=== PATIENT | female | born 1995 | race Caucasian/White ===

== ENCOUNTER 2020-08-18 17:20 | Emergency (ER) | payer MEDICAID, SELFPAY ==
[~2020-08-18] VITALS: Ht 162.6 cm; Wt 93.9 kg
[2020-08-18] MEDS ORDERED: IBUPROFEN 800 MG TAB PO ONE (18:00)
--- NOTE | 2020-08-18 19:15 | REP ---
INDICATION: L ankle pain COMPARISON: None. TECHNIQUE: Four views left ankle. FINDINGS: There is no evidence of acute fracture, dislocation, or intrinsic bone disease. IMPRESSION: No fracture or dislocation. <Electronically signed by Andrey Chahal > 08/18/20 [id number]
--- NOTE | 2020-08-18 19:16 | REP ---
INDICATION: L knee pain COMPARISON: None. TECHNIQUE: Five views left knee. FINDINGS: There is no evidence of acute fracture, dislocation, or intrinsic bone disease. IMPRESSION: No fracture or dislocation. <Electronically signed by Andrey Chahal > 08/18/20 [id number]
[2020-08-18 19:50] VITALS: BP 139/84
== END 2020-08-18 19:55 | disposition home or self-care (01) ==
LOC: M ED 17:20
DX: S83.92XA Sprain of unspecified site of left knee, initial encounter (principal); S93.402A Sprain of unspecified ligament of left ankle, initial encounter; W01.0XXA Fall on same level from slipping, tripping and stumbling without subsequent striking against object, initial encounter; Y92.9 Unspecified place or not applicable; Y93.9 Activity, unspecified; Y99.0 Civilian activity done for income or pay

== ENCOUNTER 2021-02-09 08:14 | Emergency (ER) | payer MEDICAID, SELFPAY ==
[~2021-02-09] VITALS: Ht 162.6 cm; Wt 86.8 kg
[2021-02-09] MEDS ORDERED: KETOROLAC 30 MG/ML 1ML VIAL IV ONE (09:35)
[2021-02-09] MEDS ORDERED: diphenhydrAMINE 50MG/ML VIAL (J1200) IV STA (09:38)
[2021-02-09] MEDS ORDERED: ONDANSETRON 4MG/2ML VIAL IV ONE (09:40)
[2021-02-09 10:57] LABS: BASO % 0.4 % (0.0-1.0); EOS % 0.3 % (0.0-3.0); HEMATOCRIT 38.7 % (36.0-47.0); HEMOGLOBIN 12.7 g/dl (12.0-15.5); LYMPH # 1.8 10^3/uL (1.5-5.0); LYMPH % 26.3 % (24.0-44.0); MEAN CORPUSCULAR HEMOGLOBIN 29.5 pg (27.0-33.0); MEAN CORPUSCULAR HGB CONC 32.8 g/dl (32.0-36.5); MEAN CORPUSCULAR VOLUME 89.8 fl (80.0-96.0); MONO # 0.4 10^3/uL (0.0-0.8); MONO % 5.9 % (2.0-8.0); NEUTROPHILS # 4.5 10^3/uL (1.5-8.5); PLATELET COUNT, AUTOMATED 351 10^3/uL (150-450); RED BLOOD COUNT 4.31 10^6/uL (4.00-5.40); WHITE BLOOD COUNT 6.7 10^3/uL (4.0-10.0)
[2021-02-09 11:11] LABS: BILIRUBIN,DIRECT 0.2 MG/DL (0.0-0.2); BILIRUBIN,TOTAL 0.7 MG/DL (0.2-1.0); TOTAL PROTEIN 7.3 GM/DL (6.4-8.2)
[2021-02-09] MEDS ORDERED: ACETAMINOPHEN 325 MG TAB PO ONE (13:25)
[2021-02-09] MEDS ORDERED: KETO10TAB PO (14:17)
[2021-02-09 14:23] VITALS: BP 120/73
[2021-02-09] MEDS ORDERED: POTA10CA32 PO (14:33)
== END 2021-02-09 15:21 | disposition home or self-care (01) ==
LOC: M ED 08:14
DX: G43.909 Migraine, unspecified, not intractable, without status migrainosus (principal); R74.8 Abnormal levels of other serum enzymes; E87.6 Hypokalemia; F17.200 Nicotine dependence, unspecified, uncomplicated
CPT/HCPCS: 36415; 80047; 80076; 81001; 83690; 84702; 85025; 87088; 87186; 96374; 96375; 99284; J1200; J1885; J2405

== ENCOUNTER → 2023-12-24 | Outpatient (REF) | payer OTHER, MEDICAID ==
[~2023-12-24] MED LIST: KETO10TAB PO; POTA10CA70 PO
[2023-12-24 18:02] LABS: BASO % 0.5 % (0.0-1.0); EOS % 0.5 % (0.0-3.0); HEMATOCRIT 43.7 % (36.0-47.0); HEMOGLOBIN 14.6 g/dl (12.0-15.5); LYMPH % 38.9 % (24.0-44.0); MEAN CORPUSCULAR HEMOGLOBIN 30.1 pg (27.0-33.0); MEAN CORPUSCULAR HGB CONC 33.4 g/dl (32.0-36.5); MEAN CORPUSCULAR VOLUME 90.1 fl (80.0-96.0); MONO # 0.5 10^3/uL (0.0-0.8); MONO % 6.4 % (2.0-8.0); NEUTROPHILS # 4.1 10^3/uL (1.5-8.5); NEUTROPHILS % 53.6 % (36.0-66.0); PLATELET COUNT, AUTOMATED 281 10^3/uL (150-450); RED BLOOD COUNT 4.85 10^6/uL (4.00-5.40); WHITE BLOOD COUNT 7.7 10^3/uL (4.0-10.0)
[2023-12-24 18:33] LABS: ALBUMIN 3.8 G/DL (3.2-5.2); ALKALINE PHOSPHATASE 80 U/L (46-116); ALT/SGPT 21 U/L (7.0-40); AST/SGOT 11 U/L (<34); BILIRUBIN,TOTAL 0.3 MG/DL (0.3-1.2); BLOOD UREA NITROGEN 15 MG/DL (9-23); CARBON DIOXIDE LEVEL 26 MMOL/L (20-31); CHLORIDE LEVEL 109 MMOL/L (98-107); CHOLESTEROL LEVEL 151 MG/DL (<200); CHOLESTEROL RISK RATIO 2.87 (<5); CREATININE FOR GFR 0.69 MG/DL (0.55-1.30); GLOMERULAR FILTRATION RATE > 60.0 (>60); GLUCOSE, FASTING 94 MG/DL (60-100); HDL CHOLESTEROL 52.6 MG/DL (>40); NON-HDL-C 98.4 MG/DL; POTASSIUM SERUM 3.7 MMOL/L (3.5-5.1); SODIUM LEVEL 142 MMOL/L (136-145); TOTAL PROTEIN 6.8 G/DL (5.7-8.2); TRIGLYCERIDES LEVEL 112 MG/DL (<150)
[2023-12-24 18:35] LABS: THYROID STIMULATING HORMONE 1.779 uIU/ML (0.55-4.78)
== END ==
LOC: M LAB REF 17:17
PROVIDERS: ATTEND Nurse Practitioner Family
DX: E66.3 Overweight (principal); E55.9 Vitamin D deficiency, unspecified; R53.83 Other fatigue

== ENCOUNTER 2024-10-03 10:14 | Emergency (ER) | payer OTHER ==
[~2024-10-03] VITALS: Ht 162.6 cm; Wt 98.0 kg
[2024-10-03 10:26] VITALS: BP 116/68; TEMP 97.4; O2SAT 100
== END 2024-10-03 11:29 | disposition left against medical advice (07) ==
LOC: M ED 10:14
DX: Z53.21 Procedure and treatment not carried out due to patient leaving prior to being seen by health care provider (principal)

== ENCOUNTER 2024-10-04 07:15 | Emergency (ER) | payer OTHER ==
[2024-10-04 08:07] LABS: BASO % 0.1 % (0.0-1.0); HEMATOCRIT 50.3 % (36.0-47.0); HEMOGLOBIN 16.2 g/dl (12.0-15.5); LYMPH # 0.5 10^3/uL (1.5-5.0); LYMPH % 2.4 % (24.0-44.0); MEAN CORPUSCULAR HGB CONC 32.2 g/dl (32.0-36.5); MEAN CORPUSCULAR VOLUME 93.1 fl (80.0-96.0); MONO # 1.6 10^3/uL (0.0-0.8); MONO % 7.6 % (2.0-8.0); NEUTROPHILS # 18.6 10^3/uL (1.5-8.5); NEUTROPHILS % 88.7 % (36.0-66.0); PLATELET COUNT, AUTOMATED 343 10^3/uL (150-450); WHITE BLOOD COUNT 20.9 10^3/uL (4.0-10.0)
[2024-10-04] MEDS: NS (Normal Saline) 0.9% 1,000 ML IV ONE (08:08)
[2024-10-04 08:22] LABS: OSMOLALITY SERUM 341 MOSM/KG (275-295)
[2024-10-04 08:34] LABS: ETHYL ALCOHOL (ETHANOL) 0.004 % (0.000-0.010)
[2024-10-04 08:34] LABS: ABG BASE EXCESS -18.2 (-2.0-2.0); ABG HCO3 7.6 MMOL/L (22.0-26.0); ABG O2 SATURATION 97.7 % (95.0-99.0); ABG PARTIAL PRESSURE CO2 20.1 mmHg (35.0-45.0); ABG PARTIAL PRESSURE O2 131.4 mmHg (75.0-100.0); ABG STANDARD HCO3 11.5 MMOL/L. (22.0-26.0); ABG TOTAL CO2 8.2 MMOL/L (22.0-29.0)
[2024-10-04] MEDS ORDERED: LORazepam 2 MG/ML 1ML VIAL As Ordered ONE (08:34)
[2024-10-04 08:36] LABS: SALICYLATE LEVEL 6.1 MG/DL (<30)
[2024-10-04 08:40] LABS: ABG pH (ARTERIAL) 7.194 UNITS (7.350-7.450)
[2024-10-04] MEDS: SODIUM BICARBONATE 8.4% INJ 50ML SYRINGE IV STA (08:48)
[2024-10-04] MEDS ORDERED: ROCURONIUM BROMIDE 50MG/5ML VIAL IV PRN (08:55)
[2024-10-04] MEDS: MIDAZOLAM INJ 2MG/2ML VIAL IV ONE (08:55)
[2024-10-04 09:05] LABS: ALBUMIN 4.5 G/DL (3.2-5.2); ALKALINE PHOSPHATASE 155 U/L (35-104); ALT/SGPT > 6000 U/L (7.0-40); AST/SGOT > 6000 U/L (<34); BILIRUBIN,DIRECT 1.3 MG/DL (<0.4); BILIRUBIN,TOTAL 2.3 MG/DL (0.3-1.2); BLOOD UREA NITROGEN 55 MG/DL (9-23); CARBON DIOXIDE LEVEL < 10.0 MMOL/L (20-31); CHLORIDE LEVEL 104 MMOL/L (98-107); CREATININE FOR GFR 3.18 MG/DL (0.55-1.30); GLOMERULAR FILTRATION RATE 18.4 (>60); GLUCOSE, FASTING 92 MG/DL (60-100); POTASSIUM SERUM 4.3 MMOL/L (3.5-5.1); SODIUM LEVEL 145 MMOL/L (136-145); THYROID STIMULATING HORMONE 0.503 uIU/ML (0.55-4.78); TOTAL PROTEIN 7.4 G/DL (5.7-8.2)
[2024-10-04] MEDS: LORazepam 2 MG/ML 1ML VIAL IV STA (09:11)
[2024-10-04] MEDS: MIDAZOLAM 100MG/100ML-0.9%NACL 100 MG in IV 1 EA IV SCH (09:32)
[2024-10-04] MEDS: ETOMIDATE INJ 20MG/10ML VIAL IV ONE (09:32)
[2024-10-04] MEDS: ROCURONIUM BROMIDE 50MG/5ML VIAL IV ONE (09:33)
[2024-10-04] MEDS: SODIUM BICARBONATE 150 MEQ in D5W 1,000 ML IV SCH (09:43)
[2024-10-04] MEDS: NS 0.9% IV ONE (09:43)
[2024-10-04] MEDS: [UNRECOGNIZED DRUG - OTHER] IV ONE (09:43)
[2024-10-04] MEDS: NOREPINEPHRINE 4MG IN D5 250ML 4 MG in IV 1 EA IV SCH (09:49)
[2024-10-04] MEDS: VASOPRESSIN IN 0.9 % NACL 20 UNIT in IV 1 EA IV STA (10:06)
[2024-10-04] MEDS ORDERED: D5W IV ONE ×2 (10:15→16:00)
[2024-10-04] MEDS ORDERED: ACETYLCYSTEINE IV ONE ×2 (10:15→16:00)
[2024-10-04] MEDS: VASOPRESSIN IN 0.9 % NACL 20 UNIT in IV 1 EA IV SCH (10:30)
[2024-10-04] MEDS ORDERED: NS (Normal Saline) 0.9% 1,000 ML IV ONE (10:30)
[2024-10-04] MEDS ORDERED: NS 500 ML IV ONE ×2 (10:30→11:00)
[2024-10-04 10:36] LABS: INR 4.32; PROTHROMBIN TIME 40.9 SECONDS (12.5-14.5)
[2024-10-04] MEDS ORDERED: HOME MED LIST COMPLETE! XX SCH (11:00)
[2024-10-04] MEDS: HYDROCORTISONE 100MG/2ML VIAL IV ONE (11:03)
[2024-10-04] MEDS: D5W IV ONE ×2 (11:06→12:13)
[2024-10-04] MEDS: ACETYLCYSTEINE IV ONE ×2 (11:06→12:13)
[2024-10-04 12:23] LABS: ABG BASE EXCESS -12.4 (-2.0-2.0); ABG O2 SATURATION 97.7 % (95.0-99.0); ABG PARTIAL PRESSURE CO2 28.6 mmHg (35.0-45.0); ABG STANDARD HCO3 14.9 MMOL/L. (22.0-26.0); ABG TOTAL CO2 13.8 MMOL/L (22.0-29.0); ABG pH (ARTERIAL) 7.274 UNITS (7.350-7.450)
[2024-10-04] MEDS: CEFEPIME HCL 2 GM in DEXTROSE 5% (D5W) ADV/MINI-BAG 50 ML IV ONE (12:55)
[2024-10-04 13:02] LABS: PHOSPHORUS LEVEL 7.3 MG/DL (2.5-4.9)
[2024-10-04] MEDS: FOMEPIZOLE IV ONE (13:18)
[2024-10-04] MEDS: NS IV ONE (13:18)
[2024-10-04 14:00] VITALS: BP 102/59; TEMP 96.8; O2SAT 98
[2024-10-04 14:10] LABS: KETONE, URINE AUTO RFX TRACE mg/dL (NEGATIVE); LEUKOCYTE ESTERASE UR AUTO RFX NEGATIVE (NEGATIVE); MUCUS, URINE RFX SMALL (NEGATIVE); NITRITE, URINE AUTO RFX NEGATIVE (NEGATIVE); RBC, URINE AUTO RFX 4 /HPF (0-3); SQUAM EPITHELIAL CELL UR AURFX 2 /HPF (0-6); WBC, URINE AUTO RFX 1 /HPF (0-3)
[2024-10-04 14:28] LABS: AMPHETAMINES LEVEL URINE NEGATIVE (NEGATIVE); BARBITURATES URINE NEGATIVE (NEGATIVE); BENZODIAZEPINES URINE NEGATIVE (NEGATIVE); CANNABINOIDS URINE NEGATIVE (NEGATIVE); COCAINE METABOLITE URINE NEGATIVE (NEGATIVE); METHADONE URINE NEGATIVE (NEGATIVE); OPIATES URINE NEGATIVE (NEGATIVE); PHENCYCLIDINE URINE NEGATIVE (NEGATIVE)
== END 2024-10-04 14:15 | disposition short-term general hospital (02) ==
LOC: M ED 07:15 → EDBD 07:15 → M ED 14:15
DX: J96.00 Acute respiratory failure, unspecified whether with hypoxia or hypercapnia (principal); K72.90 Hepatic failure, unspecified without coma; R00.0 Tachycardia, unspecified; I45.81 Long QT syndrome; Z88.6 Allergy status to analgesic agent
CPT/HCPCS: 36415; 36556; 36600; 70450; 71045; 71250; 74176; 80047; 80048; 80076; 80143; 80179; 80307; 81001; 82077; 82140; 82550; 82803; 83605; 83930; 84100; 84443; 85025; 85610; 86850; 86900; 86901; 93005; 93041; 94760; 96365; 96366; 96375; 99291; 99292; J0132; J0692; J1451; J1720; J2251; J2598